=== PATIENT | female | born 1955 | race Caucasian/White ===

== ENCOUNTER 2019-11-25 12:11 | Day surgery (SDC) | payer BC, OTHER ==
[~2019-11-25] VITALS: Ht 154.9 cm; Wt 59.0 kg
[~2019-11-25 12:11] MED LIST: LIDOCAINE 2% 100MG/5ML SDV (FOR ANES.) As Ordered ONE; LR 1,000 ML IV ONE; MIDAZOLAM INJ 2MG/2ML VIAL (J2250 PER 1MG) As Ordered ONE; ROCURONIUM BROMIDE 50 MG/5 ML VIAL As Ordered ONE; ceFAZolin SOD 2 GM in IV 1 EA IV ONE; fentaNYL 250 MCG/5 ML INJECTION (J3010) As Ordered ONE; propofoL 200 MG/20 ML VIAL As Ordered ONE
[2019-11-25] MEDS ORDERED: ceFAZolin 2 GM/D5W 50 ML IV BAG (J0690 PER 500MG) As Ordered ONE (12:22)
[2019-11-25] MEDS ORDERED: fentaNYL 100 MCG/2 ML INJECTION (J3010) As Ordered ONE (12:54)
[2019-11-25] MEDS ORDERED: MIDAZOLAM INJ 2MG/2ML VIAL (J2250 PER 1MG) As Ordered ONE (12:54)
[2019-11-25] MEDS: fentaNYL 100 MCG/2 ML INJECTION (J3010) IV PRN ×2 (13:07→13:28)
[2019-11-25] MEDS: MIDAZOLAM INJ 2MG/2ML VIAL (J2250 PER 1MG) IV PRN ×2 (13:07→13:08)
[2019-11-25] MEDS ORDERED: dexameTHASONE 4 MG/ML 1ML VIAL (J1100 PER 1MG) As Ordered ONE (15:23)
[2019-11-25] MEDS ORDERED: SUGAMMADEX SODIUM 500 MG/5 ML VIAL (BRIDION) As Ordered ONE (15:23)
[2019-11-25] MEDS ORDERED: KETOROLAC 60MG 2ML VIAL As Ordered ONE (15:23)
[2019-11-25] MEDS ORDERED: ONDANSETRON 4MG/2ML VIAL As Ordered ONE (15:23)
[2019-11-25] MEDS ORDERED: fentaNYL 100 MCG/2 ML INJECTION (J3010) IV PRN (17:00)
[2019-11-25] MEDS ORDERED: oxyCODONE 5MG TAB PO PRN ×2 (17:00)
[2019-11-25] MEDS ORDERED: ONDANSETRON 4MG/2ML VIAL IV PRN (17:00)
[2019-11-25] MEDS ORDERED: LR 1,000 ML IV SCH ×2 (17:00)
[2019-11-25] MEDS ORDERED: METOCLOPRAMIDE INJ 10MG/2ML VIAL (J2765 PER 1) IV PRN (17:00)
[2019-11-25] MEDS ORDERED: PERCOCET 5MG/325MG TAB PO PRN (17:00)
[2019-11-25] MEDS ORDERED: ACETAMINOPHEN 500 MG TAB PO PRN (17:00)
[2019-11-25 17:17] VITALS: BP 130/68
--- NOTE | 2019-11-26 06:20 | ECGEPIP ---
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
[2019-11-26] MEDS ORDERED: ASPIRIN 81 MG CHEW TABLET PO SCH (09:00)
--- NOTE | 2019-12-04 11:32 | REP ---
C-ARM VIEWS LEFT FOOT HISTORY: Fracture. TECHNIQUE: Four C-arm views left foot performed. FINDINGS: There is a metallic plate and multiple screws in the fifth metatarsal for a fracture at that location. The osseous structures are well aligned. 31 seconds fluoroscopy time utilized. MTDD
--- NOTE | 2019-12-09 07:46 | RO ---
DATE OF OPERATION: 11/25/19 PREOPERATIVE DIAGNOSIS: Left displaced fifth metatarsal fracture. POSTOPERATIVE DIAGNOSIS: Left displaced fifth metatarsal fracture. PROCEDURES: 1. Open reduction, internal fixation of left fifth metatarsal fracture. 2. Use of mini C-arm. SURGEON: Yessenia Marie MD ASSIST: DEEJAY Fernando ANESTHESIA: General endotracheal with popliteal nerve block. ESTIMATED BLOOD LOSS: 10 mL. COMPLICATIONS: None. CONDITION: Stable to the recovery. INDICATIONS: Belen Ocampo is a 64-year-old female who has pain due to a displaced fifth metatarsal fracture which is not healing after one month of conservative management. She elected to proceed with open reduction, internal fixation (ORIF). Risks and benefits of surgery were discussed with patient in detail and include, but are not limited to, infection, damage to nerves and blood vessels, continued pain and stiffness, need for additional procedures. Informed consent was obtained. PROCEDURE: The patient was met in the preoperative holding area where her left lower extremity was marked as the correct operative site. She was taken to the operating room and placed in the supine position on the operating room table. Bony prominences were well padded. A well-padded tourniquet was placed on the left upper thigh. The left lower extremity was prepped and draped in the normal sterile fashion. Antibiotics were given within 60 minutes prior to incision. An official timeout was held where the correct patient, operative site and operative procedure were verified. The leg was exsanguinated and tourniquet was inflated to 250 mmHg. An incision was made over the fifth metatarsal. Careful dissection was performed to the level of the bone with care to protect the extensor tendons and any apparent nerve branches. The fracture was significantly displaced and there was no significant evidence of healing. Fracture site was debrided. It was reduced easily and point of reduction clamped and held in place with a 0.045 K-wire. I did attempt to place a 2.0 lag screw; however, the bone was quite weak and there was limited space, and I was not able to gain good fixation with this due to the poor bone quality. The screw was removed. A 6-hole locking plate was selected. Two locking screws were placed distally into the metatarsal head. Two locking screws and a cortical screw were placed distally. Vicryl was used to further hold in the butterfly fragment. Copious irrigation was performed. The skin was closed using 3-0 Vicryl and 3-0 nylon. Final x-rays were performed which showed satisfactory reduction and hardware placement in AP, oblique and lateral views. The patient was placed into a sterile dressing followed by a splint. She was extubated and transferred to the recovery room in stable condition. DEEJAY Fernando was present for the entire case and was essential for soft tissue retraction, reduction, hardware placement and overall decrease in tourniquet time. GREY
== END 2019-11-25 18:10 | disposition home or self-care (01) ==
LOC: M SDC 12:11
PROVIDERS: ATTEND Orthopaedic Surgery
DX: S92.352A Displaced fracture of fifth metatarsal bone, left foot, initial encounter for closed fracture (principal); X58.XXXA Exposure to other specified factors, initial encounter; Y92.89 Other specified places as the place of occurrence of the external cause; Y93.9 Activity, unspecified; Y99.9 Unspecified external cause status
CPT/HCPCS: 28485; 64445; 76000; 87486; 87581; 87633; 87798; 93005; C1713; J1100; J1885; J2250; J2405; J3010